=== PATIENT | male | born 1950 | race Caucasian/White ===

== ENCOUNTER 2018-03-01 20:11 | Emergency (ER) | payer OTHER ==
[~2018-03-01] VITALS: Ht 170.2 cm; Wt 108.9 kg
[~2018-03-01 20:11] MED LIST: AMOXIL250 MG PO; DILANTIN100 MG PO; ESCITALOPRAM OX20 MG PO; KEPPRA XR500 MG PO; LISINOPRIL5 MG PO; METFORMIN HCL500 M1 PO; NABUMETONE500 MG PO; NEURONTIN300 MG PO; PERCOCET 5/3251 TAB PO; SIMVASTATIN40 MG PO
== END 2018-03-01 21:45 | disposition home or self-care (01) ==
LOC: ER 20:11
DX: M54.5 Low back pain (principal)

== ENCOUNTER 2022-06-07 23:24 | Emergency (ER) | payer OTHER ==
[~2022-06-07] VITALS: Ht 165.1 cm; Wt 103.0 kg
[2022-06-08] MEDS ORDERED: NABUMETONE750 MG PO (04:36)
== END 2022-06-08 05:01 ==
LOC: ER 23:24
DX: M54.50 Low back pain, unspecified (principal); Z88.0 Allergy status to penicillin; Z88.8 Allergy status to other drugs, medicaments and biological substances

== ENCOUNTER 2022-07-12 13:52 | Emergency (ER) | payer OTHER ==
[~2022-07-12] VITALS: Ht 170.2 cm; Wt 98.0 kg
[~2022-07-12 13:52] MED LIST changes: +NABUMETONE750 MG PO
[2022-07-12] MEDS ORDERED: LEVETIRACETAM500 MG PO (14:08)
== END 2022-07-12 17:57 | disposition home or self-care (01) ==
LOC: ER 13:52
DX: R53.1 Weakness (principal); Z88.2 Allergy status to sulfonamides; Z88.0 Allergy status to penicillin

== ENCOUNTER 2022-07-19 14:54 | Outpatient (CLI) | payer OTHER ==
[~2022-07-19 14:54] MED LIST changes: +LEVETIRACETAM500 MG PO
== END 2022-07-19 15:02 | disposition home or self-care (01) ==
LOC: MRI 14:54
PROVIDERS: ATTEND Psychiatry & Neurology Clinical Neurophysiology
DX: M54.16 Radiculopathy, lumbar region (principal); G83.4 Cauda equina syndrome
CPT/HCPCS: 72148

== ENCOUNTER 2023-04-21 19:06 | Emergency (ER) | payer OTHER ==
[~2023-04-21] VITALS: Ht 180.3 cm; Wt 99.8 kg
[2023-04-21] MEDS ORDERED: SIMVASTATIN5 MG PO (19:21)
== END 2023-04-21 22:23 | disposition home or self-care (01) ==
LOC: ER 19:07
DX: S80.02XA Contusion of left knee, initial encounter (principal); S80.01XA Contusion of right knee, initial encounter; W01.0XXA Fall on same level from slipping, tripping and stumbling without subsequent striking against object, initial encounter; Y93.89 Activity, other specified; Y92.018 Other place in single-family (private) house as the place of occurrence of the external cause; E11.9 Type 2 diabetes mellitus without complications; Z79.84 Long term (current) use of oral hypoglycemic drugs
CPT/HCPCS: 73560; 96372; 99283; J1885

== ENCOUNTER 2023-04-24 02:46 | Emergency (ER) | payer OTHER ==
[~2023-04-24] VITALS: Ht 170.2 cm; Wt 99.8 kg
[~2023-04-24 02:46] MED LIST changes: +SIMVASTATIN5 MG PO
[2023-04-24] MEDS ORDERED: CITALOPRAM HBR20 MG (02:52)
[2023-04-24] MEDS ORDERED: ESCITALOPRAM OX20 MG (02:53)
[2023-04-24] MEDS ORDERED: PREGABALIN150 MG (02:53)
[2023-04-24 04:12] LABS: HEMATOCRIT 37.6 % (39.0-48.0); HEMOGLOBIN 12.8 g/dL (13-16.00); MEAN CELL VOLUME 92.6 fL (80.0-100.00); MEAN CORPUSCULAR HEMOGLOBIN 31.5 pg (27.00-32.0); RED BLOOD COUNT 4.06 M/uL (4.00-6.00); RED CELL DISTRIBUTION WIDTH 13.8 % (11.5-14.5)
[2023-04-24 04:14] LABS: PLATELET COUNT 83 K/uL (150-450)
[2023-04-24 04:39] LABS: ALBUMIN 3.3 gm/dL (3.4-5.0); BILIRUBIN TOTAL 0.73 mg/dL (0.3-1.2); CALCIUM 9.2 mg/dL (8.5-10.1); CREATININE SERUM 1.05 mg/dL (0.70-1.30); GFR 69.23; POTASSIUM 4.16 mEq/L (3.5-5.1); TOTAL PROTEIN 7.3 gm/dL (6.4-8.2)
[2023-04-24 07:36] LABS: PH,URINE 5.5 (5.0-8.0); URINE APPEARANCE Clear; URINE BILIRRUBIN Negative (NEGATIVE); URINE BLOOD Negative; URINE COLOR Yellow; URINE GLUCOSE Negative (NEGATIVE); URINE LEUKOCYTE Negative; URINE NITRATE Negative; URINE PROTEIN Negative (NEGATIVE); URINE UROBILINOGEN 0.2 E.U./dl
[2023-04-24 07:37] LABS: URINE BACTERIA 11.3 uL (0.0-1933); URINE RBC 5.6 uL (0.0-20.8)
[2023-04-24 07:41] LABS: URINE EPITHELIAL CELLS 0.6 uL (0.0-38.8); URINE WBC 0.7 uL (0.0-23.2)
[2023-04-24] MEDS ORDERED: PEPCID AC20 MG PO (09:40)
[2023-04-24] MEDS ORDERED: METRONIDAZOLE500 MG PO (09:40)
== END 2023-04-24 09:54 | disposition home or self-care (01) ==
LOC: ER 02:46
PROVIDERS: General Practice
DX: S80.02XA Contusion of left knee, initial encounter (principal); S80.01XA Contusion of right knee, initial encounter; W18.30XA Fall on same level, unspecified, initial encounter; Y93.89 Activity, other specified; Y92.012 Bathroom of single-family (private) house as the place of occurrence of the external cause; Y99.9 Unspecified external cause status; I10 Essential (primary) hypertension; E11.9 Type 2 diabetes mellitus without complications; Z79.84 Long term (current) use of oral hypoglycemic drugs; Z88.8 Allergy status to other drugs, medicaments and biological substances; Z20.822 Contact with and (suspected) exposure to COVID-19; N28.1 Cyst of kidney, acquired; K57.30 Diverticulosis of large intestine without perforation or abscess without bleeding
CPT/HCPCS: 29515; 36415; 73560; 74018; 74176; 99285; J3490

== ENCOUNTER 2023-12-01 20:31 | Inpatient (IN) | payer OTHER ==
[~2023-12-01] VITALS: Ht 172.7 cm; Wt 113.4 kg
[~2023-12-01 20:31] MED LIST changes: +CITALOPRAM HBR20 MG; +ESCITALOPRAM OX20 MG; +METRONIDAZOLE500 MG PO; +PEPCID AC20 MG PO; +PREGABALIN150 MG
[2023-12-01] MEDS ORDERED: LACTOBACILLUS ACIDOPHILUS 1 CAP CAP PO STA (21:06)
[2023-12-01] MEDS ORDERED: NA PHOS,M-B/NA PHOS,DI-BA 1 BOTTLE ENEMA RECTAL STA (21:06)
[2023-12-01] MEDS ORDERED: LACTOBACILLUS ACIDOPHILUS 1 CAP CAP PO ONE (21:21)
[2023-12-01 21:47] LABS: HEMATOCRIT 40.9 % (39.0-48.0); MEAN CELL VOLUME 93.7 fL (80.0-100.00); MEAN CORPUSCULAR HGB CONC 34.2 g/dl (32.0-36.0); PLATELET COUNT 337 K/uL (150-450); RED BLOOD COUNT 4.36 M/uL (4.00-6.00); RED CELL DISTRIBUTION WIDTH 13.1 % (11.5-14.5)
[2023-12-01 22:08] LABS: CALCIUM 9.3 mg/dL (8.5-10.1); CREATININE SERUM 1.08 mg/dL (0.70-1.30); GFR 66.84; POTASSIUM 4.69 mEq/L (3.5-5.1)
[2023-12-02] MEDS ORDERED: 0.9 % SODIUM CHLORIDE 1,000 ML IV STA (00:09)
[2023-12-02] MEDS ORDERED: LIDOCAINE HCL VISCOUS 20MG/ML BLIST 15ML MM ONE (01:41)
[2023-12-02] MEDS ORDERED: HYDROGEN PEROXIDE 473 ML BOTTLE TOP ONE (02:57)
[2023-12-02] MEDS ORDERED: MINERAL OIL 30 ML BLIST.PACK ONE (02:57)
[2023-12-02 10:16] LABS: INR 1.15; PROTHROMBIN TIME 12.4 SECONDS (9.0-11.5)
[2023-12-02 10:27] LABS: PARTIAL THROMBOPLASTIN TIME < 20.0 SECONDS (22.0-34.0)
[2023-12-02] MEDS ORDERED: PANTOPRAZOLE SODIUM 40 MG/VIAL VIAL IV PUSH SCH (12:03)
[2023-12-02] MEDS ORDERED: ENOXAPARIN SODIUM 40 MG/0.4 ML SYRINGE SUBCUTANEO SCH (12:06)
[2023-12-02] MEDS ORDERED: SIMVASTATIN 20 MG TABLET PO SCH (12:07)
[2023-12-02] MEDS ORDERED: LISINOPRIL 40 MG TABLET PO SCH (12:07)
[2023-12-02] MEDS ORDERED: Pregabalin 50 MG CAPSULE PO SCH (12:09)
[2023-12-02] MEDS ORDERED: DEXTROSE 50 % IN WATER 0.5 G/ML DISP.SYRIN IV PRN (12:15)
[2023-12-02] MEDS ORDERED: ONDANSETRON HCL 2 MG/ML VIAL IV PRN (12:15)
[2023-12-02] MEDS ORDERED: INSULIN LISPRO 1,000 UNIT/10 ML UNITS SUBCUTANEO PRN (12:15)
[2023-12-02] MEDS ORDERED: CIPROFLOXACIN IN 5 % DEXTROSE 200 ML IV SCH (12:16)
[2023-12-02] MEDS ORDERED: METRONIDAZOLE/SODIUM CHLORIDE 100 ML IV SCH (12:19)
[2023-12-02] MEDS ORDERED: LevETIRAcetam 500 MG/5 ML VIAL IV SCH (13:39)
[2023-12-02] MEDS ORDERED: CIPROFLOXACIN IN 5 % DEXTROSE 400 MG/200 ML PIGGYBAG IV ONE (14:45)
[2023-12-02] MEDS ORDERED: ENOXAPARIN SODIUM 40 MG/0.4 ML SYRINGE SUBCUTANEO ONE (14:46)
[2023-12-02] MEDS ORDERED: 0.9 % SODIUM CHLORIDE 1,000 ML IV SCH (15:45)
[2023-12-02 19:00] VITALS: BP 139/71; O2SAT 93
[2023-12-02] MEDS ORDERED: FAMOTIDINE/PF 20 MG/2 ML VIAL IV PUSH SCH (21:00)
[2023-12-02] MEDS ORDERED: PHENYTOIN SODIUM 100 MG/2 ML VIAL IV SCH (21:00)
[2023-12-02] MEDS ORDERED: MORPHINE SULFATE 2 MG/ML CARTRIDGE IV ONE (23:30)
[2023-12-03 00:51] VITALS: BP 107/70; O2SAT 93
[2023-12-03 08:00] VITALS: BP 96/63; O2SAT 94
[2023-12-03] MEDS ORDERED: MORPHINE SULFATE 2 MG/ML CARTRIDGE IV PRN (08:00)
[2023-12-03 08:39] LABS: HEMATOCRIT 37.2 % (39.0-48.0); HEMOGLOBIN 12.5 g/dL (13-16.00); MEAN CELL VOLUME 93.6 fL (80.0-100.00); MEAN CORPUSCULAR HEMOGLOBIN 31.5 pg (27.00-32.0); MEAN CORPUSCULAR HGB CONC 33.6 g/dl (32.0-36.0); PLATELET COUNT 298 K/uL (150-450); RED BLOOD COUNT 3.97 M/uL (4.00-6.00); RED CELL DISTRIBUTION WIDTH 13.2 % (11.5-14.5)
[2023-12-03 08:56] LABS: INR 1.19; PARTIAL THROMBOPLASTIN TIME 33.8 SECONDS (22.0-34.0); PROTHROMBIN TIME 12.8 SECONDS (9.0-11.5)
[2023-12-03] MEDS ORDERED: PHENYTOIN SODIUM 100 MG/2 ML VIAL IV SCH ×2 (09:00)
[2023-12-03] MEDS ORDERED: CITALOPRAM 20 MG PO SCH (09:00)
[2023-12-03] MEDS ORDERED: TAMSULOSIN HCL 0.4 MG CAP PO SCH (09:00)
[2023-12-03 09:24] LABS: BILIRUBIN TOTAL 0.44 mg/dL (0.3-1.2); BILIRUBIN,CONJUGATED 0.15 mg/dL (0.0-0.2); BILIRUBIN,UNCONJUGATED 0.29 mg/dL (0.0-0.6); C-REACTIVE PROTEIN 23.7 MG/DL (0.00-0.29); CALCIUM 8.8 mg/dL (8.5-10.1); CHOL HDL RATIO 2.6 (0-5.0); CREATININE SERUM 0.8 mg/dL (0.70-1.30); GFR 94.5; MAGNESIUM 1.9 mg/dL (1.8-2.4); POTASSIUM 4.23 mEq/L (3.5-5.1); T4 FREE 1.13 NG/ML (0.76-1.46); TOTAL PROTEIN 6.6 gm/dL (6.4-8.2); TSH 0.271 uIU/mL (0.358-3.74)
[2023-12-03 10:16] LABS: ERYTHROCYTE SEDIMENTATION RATE 41 mm/hr
[2023-12-03] MEDS ORDERED: BISACODYL 10 MG/SUPP.RECT SUPP.RECT RECTAL NR (13:52)
[2023-12-03] MEDS ORDERED: METOPROLOL TARTRATE 25 MG TABLET PO SCH (13:52)
[2023-12-03] MEDS ORDERED: METOCLOPRAMIDE HCL 5 MG/ML VIAL IV NR (13:53)
[2023-12-03 16:00] VITALS: BP 100/63; O2SAT 95
[2023-12-03] MEDS ORDERED: LevETIRAcetam 500 MG/5 ML VIAL IV SCH (17:00)
[2023-12-03 20:28] LABS: PH,URINE 5.5 (5.0-8.0); URINE APPEARANCE Cloudy; URINE BILIRRUBIN Small (NEGATIVE); URINE BLOOD Trace; URINE COLOR Dark Yellow; URINE GLUCOSE Negative (NEGATIVE); URINE KETONE 15 (NEGATIVE); URINE LEUKOCYTE Trace; URINE NITRATE Positive; URINE PROTEIN 30 (NEGATIVE); URINE UROBILINOGEN 0.2 E.U./dl
[2023-12-03 20:32] LABS: URINE BACTERIA 54.1 uL (0.0-1933); URINE CAST 0.91 uL (0.0-1.40); URINE EPITHELIAL CELLS 46.2 uL (0.0-38.8); URINE RBC 32.5 uL (0.0-20.8); URINE WBC 8.1 uL (0.0-23.2)
[2023-12-04 00:24] VITALS: BP 97/47; O2SAT 98
[2023-12-04 08:00] VITALS: BP 127/72; O2SAT 97
[2023-12-04] MEDS ORDERED: DIATRIZOATE MEGLUMINE, SODIUM 30 ML BOTTLE PO STA (12:48)
[2023-12-04 16:44] VITALS: BP 136/79; O2SAT 96
[2023-12-05] VITALS: BP 136/77; O2SAT 97
[2023-12-05 07:56] VITALS: BP 151/58; O2SAT 95
[2023-12-05] MEDS ORDERED: METOCLOPRAMIDE HCL 5 MG/ML VIAL IV SCH (09:00)
[2023-12-05] MEDS ORDERED: MAGNESIUM HYDROXIDE 30 ML BLIST.PACK PO SCH (09:00)
[2023-12-05 16:37] VITALS: BP 130/85; O2SAT 98
[2023-12-06] VITALS: BP 113/64; O2SAT 94
[2023-12-06 08:00] VITALS: BP 124/71; O2SAT 94
[2023-12-06] MEDS ORDERED: POLY119PG PO (09:31)
[2023-12-06] MEDS ORDERED: LOPRESSOR25 MG PO (09:31)
[2023-12-06] MEDS ORDERED: MAGNESIUM500 MG PO (09:32)
== END 2023-12-06 11:46 | disposition home or self-care (01) | DRG 389 ==
LOC: ER 20:32 → SURG 12-02 16:05 → SURH 12-02 16:11
PROVIDERS: General Practice; ADMIT Internal Medicine; ATTEND Internal Medicine
PROC: BW21YZZ Computerized Tomography (CT Scan) of Abdomen and Pelvis using Other Contrast (ICD-10-PCS; 2023-12-01)
PROC: 4A12X4Z Monitoring of Cardiac Electrical Activity, External Approach (ICD-10-PCS; principal; 2023-12-02)
PROC: 02HV33Z Insertion of Infusion Device into Superior Vena Cava, Percutaneous Approach (ICD-10-PCS; 2023-12-03)
PROC: BW21YZZ Computerized Tomography (CT Scan) of Abdomen and Pelvis using Other Contrast (ICD-10-PCS; 2023-12-04)
DX: K56.600 Partial intestinal obstruction, unspecified as to cause (principal); G40.802 Other epilepsy, not intractable, without status epilepticus; K59.09 Other constipation; R00.0 Tachycardia, unspecified; E11.40 Type 2 diabetes mellitus with diabetic neuropathy, unspecified; N40.0 Benign prostatic hyperplasia without lower urinary tract symptoms; I10 Essential (primary) hypertension; Z79.4 Long term (current) use of insulin